=== PATIENT | male | born 1975 | race Caucasian/White ===

== ENCOUNTER 2016-08-29 16:51 | Outpatient (CLI) | payer MEDICAID, OTHER ==
--- NOTE | 2016-08-29 17:31 | XRAY Preliminary Report ---
Exam: XR Foot 3 View RT IMPRESSION: 1. Mild lateral right foot swelling. 2. Normal alignment. 3. No fracture. [facility] SITE ID: [id number]
--- NOTE | 2016-08-29 17:54 | XRAY Report ---
EXAM: RIGHT FOOT RADIOGRAPHY EXAM DATE: 08/29/2016 04:59 p.m. CLINICAL HISTORY: Injury right foot, date of injury: 08/09/2016. COMPARISON: None. TECHNIQUE: 3 views. FINDINGS: Bones: Normal. No fractures or bone lesions. Joints: Normal. No subluxations. Soft Tissues: Mild lateral right foot swelling noted. IMPRESSION: 1. Mild lateral right foot swelling. 2. Normal alignment. 3. No fracture. [facility] Referring Provider Line: [phone] SITE ID: [id number]
== END 2016-08-29 16:52 | disposition home or self-care (01) ==
LOC: DI 16:51
PROVIDERS: ATTEND Podiatrist
DX: S99.921A Unspecified injury of right foot, initial encounter (principal)

== ENCOUNTER 2016-09-12 16:01 | Outpatient (CLI) | payer OTHER ==
--- NOTE | 2016-09-13 15:20 | MRI Report ---
EXAM: RIGHT MIDFOOT MRI WITHOUT CONTRAST EXAM DATE: 09/12/2016 04:54 PM. CLINICAL HISTORY: Injury right foot. Date of injury 08/09/2016. No improvement. COMPARISON: Radiographs 08/29/2016. TECHNIQUE: Multiplanar, multisequence T1-weighted and fluid-sensitive sequences of the midfoot withou t contrast. Other: None. FINDINGS: Bones and Articular Surfaces: Focal marrow edema at the distal medial and plantar aspect of the fifth metatarsal. No discrete fracture line identified. No joint effusion. No additional areas of marrow s ignal abnormality. Musculotendinous Structures: There is a small amount of edema at the distal musculotendinous junction of the flexor digiti minimi brevis. There is some thickening of the tendon distally which may repres ent partial tear and strain. Remaining musculotendinous structures appear intact. No additional signi ficant muscle edema, atrophy, or fatty replacement. Miscellaneous: Trace amount of subcutaneous edema at the dorsal lateral aspect of the midfoot. IMPRESSION: 1. Prominent focal marrow edema at the distal medial and plantar aspect of the fifth metatarsal. Poss ible bone contusion. Possibility of a tiny avulsion injury, although no discrete fracture is identifi ed. 2. Strain and possible low-grade partial tear at the distal aspect of the flexor digiti minimi brevis . [facility] MUSCULOSKELETAL RADIOLOGY SECTION Referring Provider Line: [phone] SITE ID: [id number]
== END 2016-09-12 16:02 | disposition home or self-care (01) ==
LOC: DI 16:01
PROVIDERS: ATTEND Podiatrist
DX: S99.921A Unspecified injury of right foot, initial encounter (principal); S96.011A Strain of muscle and tendon of long flexor muscle of toe at ankle and foot level, right foot, initial encounter

== ENCOUNTER 2022-03-19 15:38 | Outpatient (CLI) | payer OTHER ==
[2022-03-19 16:23] VITALS: BP 158/100
--- NOTE | 2022-03-19 16:23 | SLEEP CARE CONSULTATION ---
Information from patient questionnaire entered by Kym Jo. I have reviewed and concur with the information entered by Kym Jo. This document represents the service I personally performed and the decisions made by me, Jade Rascon ARNP. History of Present Illness Service Date and Time: 03/19/2022 1538 Reason for Visit: New patient Accompanied by: Spouse Chief Complaint: reports: Unrefreshed sleep, Snoring, Excessive daytime sleepiness, Observed pauses in breathing, Fatigue, Frequent awakenings at night Date of Onset: 5+YRS Usual bedtime: 8-11PM Time it takes to fall asleep: 30-60SEC Snores at night: Yes Observed to quit breathing while asleep: Yes Sleeps alone due to snoring: Yes (sleeping in recliner) Number of times waking at night: 2-4 Reasons for waking at night: reports: Snoring, Gasping for air, Other (wake up feeling like he needs air). denies: Choking, Bathroom Toss, Turn, or Twitch while sleeping: No Recalls having dreams: Yes Usually gets out of bed at: 5AM; sometimes later Feels refreshed in the morning: No Morning headache: Yes (2-3 times a week; RESOLVES AFTER TAKING OVER THE COUNTER MEDS) Sleepy or fatigued during the day: Yes (will take occ nap at lunch) Ever fallen asleep while driving: No Takes day naps: No Dreams during day naps: No Prior sleep studies: No Additional HPI information: I had the pleasure of seeing ZINA OBREGON today regarding the possibility of him having a sleep disorder. His current complaints are excessive daytime sleepiness, fatigue, frequent night awakenings, observed pauses in breathing, snoring and unrefreshed sleep. He is sleeping in his recliner for last 1.5 years because since he had Covid he feels more short of air and there is a "liquid" noise when exhaling that keeps him awake if he is laying down. He states he can sleep laying down in his bed but is more comfortable in his recliner right now. He states he wakes up feeling like he was just laying with his eyes closed and not sleeping. He does not wake up feeling rested. He has a history of hypertension and is on Lisinopril. His primary provider has sent him here for evaluation before adding more medications to control his blood pressure. 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 Patient is and lives in [place]. Have you smoked in the past 12 months: No Cigarettes per day (20/pack): 20 Years of smokin Quit date: 2009 Smoking Pack Years: 17.0 Alcohol use: No Caffeine use: Yes Caffeine amount and frequency: 3-4 CUPS DAILY Family History Family history of sleep disordered breathing: Yes Family Hx Sleep Apnea: Father: Snoring, Sleep apnea - Treated, Sibling: Snoring Allergies and Home Medications Known drug allergies: No Drug allergies reviewed: Yes (NKDA) Home medication list reviewed: Yes Allergy and home medication list: Medications: Lisinopril 20 mg daily Review of Systems Weight gain over past 5 years: 80 lbs Cardiovascular: reports: high blood pressure, palpitations, chest pain, leg or foot swelling, have to sleep sitting up Respiratory: reports: shortness of breath, wheeze Gastrointestinal: denies: heartburn Urinary: reports: frequency Neurological: reports: headaches. denies: head trauma Psychiatric: denies: anxiety, depression, mood disorder Ear/Nose/Throat: reports: nose bleeds, wisdom teeth removed. denies: tonsillectomy Endocrine: reports: sluggishness, increased appetite, increased urination Musculoskeletal: reports: joint pain, back pain, muscle pain or cramping Physical Exam Vital signs obtained and entered by: KYM Garcia MA Blood Pressure: 158/100 (LEFT ARM) Cuff size: regular Heart Rate: 93 O2 Saturation: 94 Height: 5 ft 9 in Weight: 310 lb 12.8 oz Body Mass Index: 45.8 BMI Classification: Morbidly Obese Neck circumference: 19.5 Nostrils: patent to airflow Mouth and throat: narrow oropharynx Soft palate: long Hard palate: normal Uvula: normal Uvula visualization: 25% Mallampati Class III Tongue: normal in size Tonsils: 1+ Neck: normal w/o lymphadenopathy or thyromegaly Heart: regular rate and rhythm Lungs: clear bilaterally Impression and Plan 1. Suspected Obstructive Sleep Apnea-Hypopnea Syndrome, as suggested by a history of loud and irregular snoring, observed cessation of breath while asleep, gasping or choking in sleep, morning headache, frequent awakening during the night, unrefreshed sleep, cognitive impairment, and excessive daytime sleepiness. Narrow oropharynx and obesity are common predisposing factors for obstructive sleep apnea-hypopnea syndrome. I recommend proceeding to polysomnog curtis to confirm the diagnosis and to assess severity. If the patient has significant sleep disordered breathing, a manual CPAP titration study will also be performed to find the optimal treatment pressure. I informed the patient of what the sleep studies involve and after some discussion, obtained agreement to proceed. The pathophysiology of obstructive sleep apnea-hypopnea syndrome was discussed with the patient and health risks of cardiovascular and cerebrovascular disease if not treated. Risks of drowsy driving discussed in detail and patient advised to avoid long distance driving and to stock puller at the first sign of drowsiness. Patient agreed to plan. * Schedule polysomnography * Avoid long distance driving or driving when feeling sleepy. * Avoid alcohol, sedative and muscle relaxant around bedtime. * Attempt to lose weight. * Review instructions provided by trained office staff on how to prepare for the sleep study. * Return for follow-up after sleep study completed. Counseling Topics: Weight loss health impact Visit Type: In Office Other Participants: Spouse/Significant Other Time Spent with Patient (minutes): 31 Provider Statement: I spent 100% of the Face to Face Visit with the patient with greater than 50% spent counseling the patient and coordination of care.
== END 2022-03-19 15:39 | disposition home or self-care (01) ==
LOC: SC 15:38
PROVIDERS: ATTEND Nurse Practitioner Family
DX: G47.10 Hypersomnia, unspecified (principal); R41.89 Other symptoms and signs involving cognitive functions and awareness; G47.8 Other sleep disorders; R51.9 Headache, unspecified; R06.81 Apnea, not elsewhere classified; R06.83 Snoring; E66.01 Morbid (severe) obesity due to excess calories; Z68.42 Body mass index [BMI] 45.0-49.9, adult; Z86.16 Personal history of COVID-19
CPT/HCPCS: 99203; 99212

== ENCOUNTER 2022-04-09 14:53 | Outpatient (CLI) | payer OTHER | END 2022-04-09 14:54 | disposition home or self-care (01) | LOC: SC 14:53 | PROVIDERS: ATTEND Nurse Practitioner Family | DX: G47.33 Obstructive sleep apnea (adult) (pediatric) (principal); R09.02 Hypoxemia; Z68.42 Body mass index [BMI] 45.0-49.9, adult | CPT/HCPCS: 95806 ==

== ENCOUNTER 2022-04-16 16:56 | Outpatient (CLI) | payer OTHER ==
[2022-04-16 11:33] VITALS: BP 130/90
--- NOTE | 2022-04-16 11:33 | SLEEP CARE CONSULTATION ---
Information from patient questionnaire entered by Kym Jo. I have reviewed and concur with the information entered by Kym Jo. This document represents the service I personally performed and the decisions made by , Jade Rascon ARNP. History of Present Illness Service Date and Time: 04/16/2022 1140 Initial [place] Sleepiness Scale score: 16 (03/19/22) Current [place] Sleepiness Scale score: 13 (04/16/22) Additional HPI information: ZIAN OBREGON returns via video telehealth visit for follow up and results of the recently performed home sleep study. I explained the pathophysiology behind obstructive sleep apnea. We then spent quite a bit of time discussing different treatment options. For mild obstructive sleep apnea, surgery and oral appliance are alternatives to nasal CPAP therapy but in moderate or severe cases, nasal CPAP is the most effective and reliable treatment. I reviewed the impact of weight changes on sleep apnea and strongly recommended losing weight. After some discussion, the patient opted to go with the nasal CPAP therapy. Nasal autoCPAP set at 4-15 cmH20 will be ordered with rationale explained. A manual titration study will be ordered if unable to find optimal pressure with office adjustments. I explained how CPAP machine works and what to expect when using the machine. Using CPAP every night in order to get used to it was emphasized. Patient advised to put CPAP mask on before getting into bed so as not to fall asleep without CPAP. To assist acclimation to CPAP use, it could also be used for a short time during day while reading or watching TV. The patient was instructed to call the CPAP supplier to discuss any mechanical problem that may occur. If the mask given is uncomfortable or is difficult to keep on through the night even with adjustment, contact the CPAP supplier as many will replace with another mask style if notified before 30 days. If snoring or perceives is not getting enough air or too much air from the machine, notify this office. Patient does not drink alcohol. Patient was cautioned about risks of drowsy driving until sleepiness symptoms resolve. Patient denies drowsy driving. Sleep Study - Results Type of Sleep Study: Home sleep study (COMPLETED 04/09/22) Prior sleep studies: No Polysomnography/Home Sleep Study results: Physician Impression: The quality of the study is good. The length of the study is adequate (> 240 minutes). Please also see the tabulated and graphic data. 1. Obstructive Sleep Apnea-Hypopnea (ICD-10 G47.33), severe, with an AHI of 50.8/hr and lali SaO2 of 58%. During the study, the patient had 261 apneas (261 obstructive, 0 central, 0 mixed) and 100 hypopneas. The longest episode lasted 85.5 seconds. The patient only slept supine during this study (supine AHI was 50.8 and non-supine, 0.00). 2. Hypoxemia (ICD-10 R09.02), severe, with the lowest oxygen saturation of 58 % and 47.1 minutes with SaO2 under 90%. Baseline oxygen saturation was normal (Average oxygen saturation was 92%). Allergies and Home Medications Drug allergies reviewed: Yes (NKDA) Home medication list reviewed: Yes (no changes) Review of Systems Review of systems same as previous: Yes (no changes) Physical Exam Vital signs obtained and entered by: VIA PHONE KYM Garcia MA Blood Pressure: 130/90 (PER PT 130-159/90-100) Height: 5 ft 9 in (PER PT) Weight: 310 lb (PER PT ) Body Mass Index: 45.8 BMI Classification: Morbidly Obese Impression and Plan 1. Obstructive Sleep Apnea-Hypopnea Syndrome, severe, with lowest oxygen saturation of 58%. Obviously this is the cause of the patients symptoms of unrefreshed sleep, and excessive daytime sleepiness. Positive pressure therapy could benefit hypertension. As mentioned above, the patient will be started on nasal autoCPAP therapy with pressure set at 4-15 cmH2O. Compliance guidelines also reviewed. A copy of compliance guidelines will be given for reference at check out. Because the apnea is more severe supine, I instructed to avoid sleeping supine using pillow positioning until able to start CPAP use. 2. Hypoxemia, severe, with a lali oxygen saturation of 58% and 47.1 minutes spent under 90%. His baseline oxygen saturation was normal with an average oxygen saturation of 92%. * Nasal auto CPAP therapy, pressure at 4-15 cm H2O, urgent setup because of low oxygen saturation during study. * Attempt to lose weight. * Avoid alcohol consumption near bedtime. * Avoid supine sleep until using CPAP. * The patient is again cautioned about driving until sleepiness completely resolves. * Return one month after CPAP obtained. I will assess response to therapy and compliance at that time. Counseling Topics: Weight loss health impact Visit Type: Telehealth Video Video Type: Yoannaimity Patient Location: Work Location of Provider: Office Patient agrees and consents to this telehealth visit type: Yes Patient agrees to have their insurance billed: Yes Time Spent with Patient (minutes): 16 Provider Statement: I spent 100% of the Telehealth Video Call with the patient with greater than 50% spent counseling the patient and coordination of care.
== END 2022-04-16 16:57 | disposition home or self-care (01) ==
LOC: SC 16:56
PROVIDERS: ATTEND Nurse Practitioner Family
DX: G47.33 Obstructive sleep apnea (adult) (pediatric) (principal); E66.01 Morbid (severe) obesity due to excess calories; Z68.42 Body mass index [BMI] 45.0-49.9, adult

== ENCOUNTER 2022-10-10 08:43 | Outpatient (CLI) | payer OTHER ==
--- NOTE | 2022-10-10 09:04 | Sleep Patient Instructions ---
Sleep Center Visit Summary - Patient Visit Information Reason for Visit: First Compliance followup for PAP therapy - Patient Instructions Additional Instructions: You were here for follow up of CPAP therapy. You will be continued on CPAP therapy with pressure at 14-16 cmH2O. Please let us know if the pressure change is uncomfortable and we can make further adjustments of the pressure. You should follow up with sleep care in 3 months. You may contact us sooner for any questions or concerns. - Clinic Information Contact: [facility] [address] [place] [id number] [email or web address] T: [phone]
--- NOTE | 2022-10-10 09:10 | SLEEP CARE CONSULTATION ---
Information from patient questionnaire entered by Curry Jo. I have reviewed and concur with the information entered by Curry Jo. This document represents the service I personally performed and the decisions made by , Jade Rascon ARNP. History of Present Illness Service Date and Time: 10/10/2022 0843 Previous diagnosis: Severe, Obstructive Sleep Apnea-Hypopnea Syndrome AHI: 50.8 (in 2022) Reason for follow up: first compliance Equipment type: CPAP (RESMED 11, s/u 04/2022) Equipment obtained from: [employer] (getting supplies as needed) Mask style: Full face Mask brand: Resmed (Airfit [id number]) Backup mask available: Yes (old mask) Last cushion change: last week Prior sleep studies: No Type of Sleep Study: Home sleep study (COMPLETED 04/09/22) HPI additional information: ZINA OBREGON was diagnosed to have severe, AHI 50.8, obstructive sleep apnea- hypopnea syndrome and returned today for CPAP therapy first compliance follow- up. Sleep Study - Results Type of Sleep Study: Home sleep study (COMPLETED 04/09/22) Prior sleep studies: No CPAP Compliance Data - Data Reviewed with Patient Average duration of nightly device use: 6 HRS 42 MIN Compliance rate %: 100 (09/07/22-10/06/22; 30/30 days used) Current pressure setting (cmH2O): 4-15 (median 13.1, avg 14.8, max 15) Average residual AHI: 1.7 Central apnea: 0 Obstructive apnea: 0.7 Hypopnea: 0.9 Average large leak: 0.2 L/min Subjective Patient concerns: reports: condensation in mask/hose (rare). denies: aerophagia, mask discomfort, air blowing in eyes, mask leak noise, nasal congestion, dry mouth, nose, throat, epistaxis Observed to snore while using device: Yes (rare occurence, usually at first of night) Current pressure setting perceived as: comfortable On therapy, patient: reports: sleeping better, awakening more refreshed, being more awake and alert during the day, more rested overall. denies: drowsiness while driving Initial [place] Sleepiness Scale score: 16 (03/19/22) Current [place] Sleepiness Scale score: 1 (10/10/22) Allergies and Home Medications Known drug allergies: No Drug allergies reviewed: Yes Home medication list reviewed: Yes (no changes) Allergy and home medication list: Allergies No Known Drug Allergies Allergy (Verified 10/09/22 14:41) Review of Systems Review of systems same as previous: Yes (no changes) Physical Exam Vital signs obtained and entered by: CURRY Garcia MA Blood Pressure: 132/80 (LEFT ARM) Cuff size: long Heart Rate: 76 O2 Saturation: 95 Height: 5 ft 9 in (PER PT) Weight: 315 lb 12.8 oz Weight change since last visit: 5 lb gain Body Mass Index: 46.6 BMI Classification: Morbidly Obese Impression and Plan 1. Obstructive Sleep Apnea-Hypopnea Syndrome, severe, with good treatment compliance and good apnea control. On CPAP therapy, the patient has better sleep quality and is more rested overall. He has significant improvement of his sleep apnea. He occasionally hears a snore when he first puts on the mask. He feels he could use more pressure initially. The patients pressure will be changed to autoCPAP 14-16 cmH20 to reflect pressure being used. I will also increase ramp starting pressure to 6 cmH2O and explained to patient how he can change this setting if needed for comfort. Patient advised to contact me if pressure change is uncomfortable so that it can be adjusted. Goals for apnea control discussed. He voiced understanding. Patient's apnea severity and rationale for treatment to reduce apnea, improve sleep quality and reduce cardiovascular and cerebrovascular events was reviewed. I also reviewed the benefit of consistent device use of CPAP for hypertension. 2. Obesity, unspecified. Currently patients BMI is 46.6. Obesity increases the risk of apnea, CPAP pressure requirements and overall health risks especially cardiovascular and diabetes. Thus patient is advised to try to lose weight. * Change auto CPAP pressure to 14-16 cmH2O * Increase ramp starting pressure to 6 cmH2O * Notify me if snoring with mask or feeling that the pressure is too much or too little * Attempt to lose weight * Call this office if any problems using CPAP * Return for follow up in 3 months, or sooner if concerns arise Counseling Topics: Spare mask, Weight loss health impact Visit Type: In Office Time Spent with Patient (minutes): 20 Provider Statement: I spent 100% of the Face to Face Visit with the patient with greater than 50% spent counseling the patient and coordination of care.
[2022-10-10 09:12] VITALS: BP 132/80
== END 2022-10-10 08:44 | disposition home or self-care (01) ==
LOC: SC 08:43
PROVIDERS: ATTEND Nurse Practitioner Family
DX: G47.33 Obstructive sleep apnea (adult) (pediatric) (principal); E66.01 Morbid (severe) obesity due to excess calories; Z68.42 Body mass index [BMI] 45.0-49.9, adult
CPT/HCPCS: 99212; 99213

== ENCOUNTER 2023-01-09 08:39 | Outpatient (CLI) | payer OTHER ==
--- NOTE | 2023-01-09 09:01 | Sleep Patient Instructions ---
Sleep Center Visit Summary - Patient Visit Information Reason for Visit: Three month followup for PAP therapy - Patient Instructions Additional Instructions: You were here for follow up of CPAP therapy. You will be continued on CPAP therapy with pressure at 13-15 cmH2O. Please let us know if the pressure change is uncomfortable and we can make further adjustments of the pressure. You should follow up with sleep care in 6 months. You may contact us sooner for any questions or concerns. - Clinic Information Contact: [facility] [address] [place] [id number] [email or web address] T: [phone]
--- NOTE | 2023-01-09 09:03 | SLEEP CARE CONSULTATION ---
Information from patient questionnaire entered by Curry Jo. I have reviewed and concur with the information entered by Curry Jo. This document represents the service I personally performed and the decisions made by , Jade Rascon ARNP. History of Present Illness Service Date and Time: 01/09/2023 0839 Previous diagnosis: Severe, Obstructive Sleep Apnea-Hypopnea Syndrome AHI: 50.8 (in 2022) Reason for follow up: three month (F/U AND PRESSURE CHANGE) Equipment type: CPAP (RESMED 11, s/u 04/2022) Equipment obtained from: [employer] (getting supplies) Mask style: Full face Backup mask available: Yes Last cushion change: 2 months Prior sleep studies: No Type of Sleep Study: Home sleep study (COMPLETED 04/09/22) HPI additional information: ZINA OBREGON was diagnosed to have severe, AHI 50.8, obstructive sleep apnea-hypopnea syndrome and returned today for CPAP therapy three month follow- up. Sleep Study - Results Type of Sleep Study: Home sleep study (COMPLETED 04/09/22) Prior sleep studies: No CPAP Compliance Data - Data Reviewed with Patient Average duration of nightly device use: 7 HRS 13 MINS Compliance rate %: 98 (10/09/22-; 90/90 days used) Current pressure setting (cmH2O): 14-16 (15.8 95th%) Average residual AHI: 0.9 Central apnea: 0.1 Obstructive apnea: 0.3 Hypopnea: 0.5 Average large leak: 0.4 L/min Subjective Patient concerns: reports: air blowing in eyes. denies: aerophagia, mask discomfort, mask leak noise, condensation in mask/hose, nasal congestion, dry mouth, nose, throat, epistaxis Observed to snore while using device: No Current pressure setting perceived as: too high On therapy, patient: reports: sleeping better, awakening more refreshed, being more awake and alert during the day, more rested overall. denies: drowsiness while driving Initial [place] Sleepiness Scale score: 16 (03/19/22) Current [place] Sleepiness Scale score: 0 (01/09/23) Allergies and Home Medications Known drug allergies: No Drug allergies reviewed: Yes Home medication list reviewed: Yes (no changes) Allergy and home medication list: Allergies No Known Drug Allergies Allergy Review of Systems Review of systems same as previous: Yes (NO CHANGE) Physical Exam Vital signs obtained and entered by: CURRY Garcia MA Blood Pressure: 142/90 (LEFT ARM) Cuff size: regular Heart Rate: 68 O2 Saturation: 95 Height: 5 ft 9 in (PER PT) Weight: 311 lb 3.2 oz Body Mass Index: 45.9 BMI Classification: Morbidly Obese Impression and Plan 1. Obstructive Sleep Apnea-Hypopnea Syndrome, severe, with good treatment compliance and good apnea control. On CPAP therapy, the patient has better sleep quality and is more rested overall. Patient has significant improvement of their sleep apnea and is satisfied with current CPAP therapy. He feels like the pressure goes too high and will wake him up. The patients pressure will be changed to autoCPAP 13-15 cmH20 for patient comfort. Patient advised to contact me if pressure change is uncomfortable so that it can be adjusted. Goals for apnea control discussed. Patient's apnea severity and rationale for treatment to reduce apnea, improve sleep quality and reduce cardiovascular and cerebrovascular events was reviewed. I also reviewed the benefit of consistent device use of CPAP for hypertension. 2. Obesity, unspecified. Currently patients BMI is 45.9. Obesity increases the risk of apnea, CPAP pressure requirements and overall health risks especially cardiovascular and diabetes. Thus patient is advised to lose weight. * Change auto CPAP pressure to 13-15 cmH2O * Notify me if snoring with mask or feeling that the pressure is too much or too little * Attempt to lose weight * Call this office if any problems using CPAP * Return for follow up in 6 months, or sooner if concerns arise Counseling Topics: Spare mask, Weight loss health impact Follow up with Sleep Care in: 6 months Visit Type: In Office Time Spent with Patient (minutes): 13 Provider Statement: I spent 100% of the Face to Face Visit with the patient with greater than 50% spent counseling the patient and coordination of care.
[2023-01-09 09:13] VITALS: BP 142/90; O2SAT 95
== END 2023-01-09 08:40 | disposition home or self-care (01) ==
LOC: SC 08:39
PROVIDERS: ATTEND Nurse Practitioner Family
DX: G47.33 Obstructive sleep apnea (adult) (pediatric) (principal); E66.01 Morbid (severe) obesity due to excess calories; Z68.42 Body mass index [BMI] 45.0-49.9, adult
CPT/HCPCS: 99212

== ENCOUNTER 2023-02-10 16:11 | Outpatient (CLI) | payer OTHER ==
--- NOTE | 2023-02-10 20:47 | XRAY Report ---
PROCEDURE: Hand 3 View RT INDICATIONS: UNSPECIFIED INJURY OF RIGHT WRIST,HAND,AND FINGER TECHNIQUE: 3 views of the hand acquired. COMPARISON: None. FINDINGS: Bones: No acute fractures or dislocations. No suspicious bony lesions. Soft tissues: No suspicious soft tissue calcifications or masses. IMPRESSION: No acute osseous abnormality. If there is clinical concern or persistent symptoms, additional imaging such as repeat radiographs or advanced imaging (e.g. CT, MRI) may be helpful for further evaluation. Reviewed by: Jonas Hawkins MD on 02/10/2023 8:46 PM PST Approved by: Jonas Hawkins MD on 02/10/2023 8:46 PM PST Station ID: [id number]
== END 2023-02-10 16:12 | disposition home or self-care (01) ==
LOC: DI 16:11
PROVIDERS: ATTEND Physician Assistant Medical
DX: S69.91XA Unspecified injury of right wrist, hand and finger(s), initial encounter (principal)